=== PATIENT | female | born 1955 | race Caucasian/White ===

== ENCOUNTER 2017-10-04 13:39 | Outpatient (CLI) | payer OTHER ==
--- NOTE | 2017-10-04 16:28 | Mammography Report ---
DATE OF SERVICE: 10/04/2017 DIGITAL DIAGNOSTIC BILATERAL MAMMOGRAM: 10/04/2017 CLINICAL INDICATION: Palpable abnormality 11 o'clock right breast. COMPARISON: 09/19/2013. TECHNIQUE: Bilateral CC, MLO views, right true lateral and laterally exaggerated craniocaudal views. The patient reports that the palpable abnormality has resolved. No marker was placed. FINDINGS: The breasts demonstrate scattered fibroglandular densities bilaterally. Postbiopsy changes in the left breast are stable. Coarse and punctate, typically benign calcifications are present. Intramammary lymph nodes are stable. No suspicious masses, clustered microcalcifications, or regions of architectural distortion are identified. Specifically, no mammographic abnormality is appreciated at the 11 o'clock position of the right breast. IMPRESSION: BENIGN FINDINGS. RECOMMENDATION: ROUTINE ANNUAL SCREENING UNLESS OTHERWISE CLINICALLY INDICATED. BIRADS CATEGORY 2-BENIGN FINDINGS. STANDARD QUALIFYING STATEMENTS: 1. This examination was reviewed with the aid of Computer-Aided Detection (CAD). 2. A negative or benign imaging report should not delay biopsy if clinically suspicious findings are present. Consider surgical consultation if warranted. More than 5% of cancers are not identified by imaging. 3. Dense breasts may obscure an underlying neoplasm. TD: 10/04/2017 17:27
== END 2017-10-04 13:40 | disposition home or self-care (01) ==
LOC: DI 13:39
PROVIDERS: ATTEND Family Medicine
DX: N63.11 Unspecified lump in the right breast, upper outer quadrant (principal)
CPT/HCPCS: 77066

== ENCOUNTER 2019-09-17 09:09 | Outpatient (CLI) | payer MEDICARE, OTHER ==
--- NOTE | 2019-09-18 13:18 | Mammography Report ---
Reason: ROUTINE MAMMO Procedure Date: 09/17/2019 Accession Number: [id number] / [id number] Procedure: SHONDA - Screening Mammo w/Boris CPT Code: Final Report FULL RESULT: EXAM: Screening Mammo w/Boris DATE: 09/17/2019 9:50 AM CLINICAL HISTORY: The patient is an asymptomatic 64-year-old female. Second degree family history of breast cancer. Prior benign biopsies. TECHNIQUE: (B) - Bilateral CC and MLO views were obtained. COMPARISON: 10/04/2017 and 09/19/2013 PARENCHYMAL PATTERN: (A) - The breasts demonstrate scattered fibroglandular densities bilaterally. FINDINGS: RIGHT BREAST: There is a new circumscribed mass in the posterior 1:00 position; reference tomographic slices 47 (MLO) and 29 (CC). Recommend targeted ultrasound. The remainder the parenchymal pattern is stable. LEFT BREAST: The pattern of asymmetry is stable. Postbiopsy changes noted.. There are no suspicious masses, calcifications, or areas of distortion. IMPRESSION: RIGHT BREAST: Incomplete examination. LEFT BREAST: Benign examination. RECOMMENDATION: (ADDUS) - Targeted ultrasound recommended - right breast. BI-RADS CATEGORY: (0) - Incomplete Examination - need additional evaluation. STANDARD QUALIFYING STATEMENTS: A negative or benign imaging report should not preclude biopsy if clinically suspicious findings are present. Dense breasts may obscure an underlying neoplasm. This examination was reviewed with the aid of 3D breast imaging (tomosynthesis).
== END 2019-09-17 09:10 | disposition home or self-care (01) ==
LOC: DI 09:09
PROVIDERS: ATTEND Family Medicine
DX: Z12.31 Encounter for screening mammogram for malignant neoplasm of breast (principal); R92.8 Other abnormal and inconclusive findings on diagnostic imaging of breast; Z80.3 Family history of malignant neoplasm of breast
CPT/HCPCS: 77063; 77067

== ENCOUNTER 2019-09-30 08:48 | Outpatient (CLI) | payer OTHER ==
--- NOTE | 2019-09-30 15:33 | Ultrasound Report ---
Reason: ABN MAMMO - SPEC VIEWS RT Procedure Date: 09/30/2019 Accession Number: [id number] / [id number] Procedure: US - Breast Unilateral Limited CPT Code: Final Report FULL RESULT: EXAM: Breast Unilateral Limited DATE: 09/30/2019 10:19 AM CLINICAL HISTORY: Follow-up abnormal mammogram COMPARISON: Mammogram 09/17/2019 TECHNIQUE: Targeted ultrasound was performed of the right breast in the area of clinical concern at 1:00 o'clock and 8 cm distance from the nipple. Color Doppler was employed as appropriate. FINDINGS: Corresponding to the mammographic abnormality is a 5 x 3 x 4 mm avascular well-circumscribed probable cyst 1:00 position right breast 8 cm from the nipple. No suspicious features or solid mass is seen. IMPRESSION: Probably benign RECOMMENDATION: Follow-up limited right breast ultrasound in 6 months. BIRADS CATEGORY 3 probably benign RADIA
== END 2019-09-30 08:49 | disposition home or self-care (01) ==
LOC: DI 08:48
PROVIDERS: ATTEND Family Medicine
DX: R92.8 Other abnormal and inconclusive findings on diagnostic imaging of breast (principal)
CPT/HCPCS: 76642

== ENCOUNTER 2020-08-19 09:00 | Day surgery (SDC) | payer MEDICARE, OTHER ==
[2020-08-19] MEDS ORDERED: fentaNYL 250 MCG/5 ML VIAL IVP ONE (09:01)
[2020-08-19] MEDS ORDERED: MIDAZOLAM 2 MG/2 ML VIAL IVP ONE (09:01)
[2020-08-19] MEDS ORDERED: ONDANSETRON 4 MG/2 ML VIAL IVP ONE (09:01)
[2020-08-19] MEDS ORDERED: LACTATED RINGERS 1,000 ML IV ONE ×2 (09:09→12:54)
[2020-08-19 13:06] VITALS: BP 121/42
== END 2020-08-19 09:01 | disposition home or self-care (01) ==
LOC: SDS 09:00
PROVIDERS: ATTEND Surgery
PROC: 0DBN8ZZ Excision of Sigmoid Colon, Via Natural or Artificial Opening Endoscopic (ICD-10-PCS; principal; 2020-08-19 10:15)
DX: R19.4 Change in bowel habit (principal); R10.9 Unspecified abdominal pain; D12.5 Benign neoplasm of sigmoid colon; K64.8 Other hemorrhoids; Z90.49 Acquired absence of other specified parts of digestive tract
CPT/HCPCS: 45385; J3010; J7120

== ENCOUNTER 2020-08-24 12:53 | Outpatient (CLI) | payer MEDICARE, OTHER | END 2020-08-24 12:54 | disposition home or self-care (01) | LOC: LAB 12:53 | PROVIDERS: ATTEND Surgery | DX: Z01.812 Encounter for preprocedural laboratory examination (principal); K63.5 Polyp of colon; Z20.828 Contact with and (suspected) exposure to other viral communicable diseases ==

== ENCOUNTER 2020-08-28 06:23 | Inpatient (IN) | payer MEDICARE, OTHER ==
[2020-08-28] MEDS ORDERED: LACTATED RINGERS 1,000 ML IV ONE ×2 (06:28→10:10)
[2020-08-28] MEDS ORDERED: ceFAZolin 2 GM/50 ML 2 GM/50 ML BAG IV ONE (06:30)
[2020-08-28] MEDS ORDERED: ACETAMINOPHEN 1,000 MG/100 ML 100 ML IV ONE (06:32)
[2020-08-28] MEDS ORDERED: GABAPENTIN 400 MG CAPSULE ONE (06:33)
[2020-08-28] MEDS ORDERED: BUPIVACAINE 0.5%-EPI 1:200000 PF 30 ML VIAL ONE (07:04)
[2020-08-28] MEDS ORDERED: LIDOCAINE-MPF 2% 5 ML VIAL ONE (07:05)
[2020-08-28] MEDS ORDERED: MIDAZOLAM 2 MG/2 ML VIAL ONE (07:05)
[2020-08-28] MEDS ORDERED: KETAMINE 500 MG/10 ML VIAL ONE (07:05)
[2020-08-28] MEDS ORDERED: PROMETHAZINE INJ 6.25 MG in SODIUM CHLORIDE 0.9% 50 ML IV PRN (07:05)
[2020-08-28] MEDS ORDERED: KETOROLAC 30 MG/ML VIAL ONE (07:06)
[2020-08-28] MEDS ORDERED: PROPOFOL 200 MG/20 ML VIAL IVP ONE (07:06)
[2020-08-28] MEDS ORDERED: MAGNESIUM SULFATE 1 GM/2 ML VIAL ONE ×2 (07:06→07:32)
[2020-08-28] MEDS ORDERED: DEXAMETHASONE 10 MG/ML VIAL ONE (07:06)
[2020-08-28] MEDS ORDERED: ONDANSETRON 4 MG/2 ML VIAL ONE (07:06)
[2020-08-28] MEDS ORDERED: ROCURONIUM 50 MG/5 ML VIAL ONE (07:07)
[2020-08-28] MEDS ORDERED: SCOPOLAMINE PATCH TOP ONE ×2 (07:10)
[2020-08-28] MEDS ORDERED: PROMETHAZINE 25 MG/1 ML VIAL ONE (07:10)
[2020-08-28] MEDS: CELECOXIB 100 MG CAPSULE PO ONE ×2 (07:22→07:23)
--- NOTE | 2020-08-28 07:27 | ANESTHESIA ---
Pre-Anesthesia VS, & Labs - Diagnosis large sigmoid mass - Procedure sigmoid colectomy Vital Signs: Temp Pulse Resp BP Pulse Ox 36.7 C 134 H 16 180/125 H 99 08/28/20 06:32 08/28/20 06:32 08/28/20 06:32 08/28/20 06:32 08/28/20 06:32 Height: 5 ft 9 in Weight (kg): 69.6 kg Body Mass Index: 22.6 BMI Classification: Healthy weight - NPO >8 hours - Is Patient ?: No - Lab Results Lab results reviewed: Yes Home Medications and Allergies Home Medications: Ambulatory Orders Calcium Carbonate [Elemental Calcium] 600 mg PO DAILY 08/24/20 Glucos Sul 2Kcl/MSM/Chond/C/Mn [Glucosamine Chondroitin Cap] 1 each PO DAILY 08/24/20 Multivitamin [Daily Multiple Vitamin] 1 each PO DAILY 08/24/20 Active Medications Promethazine HCl 6.25 mg/ (Sodium Chloride) 50.25 mls @ 100 mls/hr IV Q6H PRN PRN Reason: Nausea / Vomiting Cefotetan Disodium 2 gm/ (Sodium Chloride) 100 mls @ 200 mls/hr IV ONCE ONE Stop: 08/28/20 08:29 Albuterol Sulf [Ventolin Hfa Inhaler] 1 puffs INH Q4HR PRN 08/18/20 Fluticasone/Salmeterol [Advair 250-50 Diskus] 1 each IH DAILY 08/18/20 Montelukast [Singulair] 1 tab PO DAILY 08/18/20 Ondansetron Odt [Zofran Odt] 4 mg PO DAILY PRN 08/19/20 Calcium Carbonate [Elemental Calcium] 600 mg PO DAILY 08/24/20 Glucos Sul 2Kcl/MSM/Chond/C/Mn [Glucosamine Chondroitin Cap] 1 each PO DAILY 08/24/20 Multivitamin [Daily Multiple Vitamin] 1 each PO DAILY 08/24/20 Allergies/Adverse Reactions: Allergies Allergy/AdvReac Type Severity Reaction Status Date / Time No Known Drug Allergies Allergy Verified 08/19/20 09:26 Anes History & Medical History - Anesthetic History Anesthesia Complications: reports: No previous complications Family history of Anesthesia Complications: Denies Family history of Malignant Hyperthermia: Denies - Medical History Cardiovascular: reports: None Pulmonary: reports: Asthma Gastrointestinal: reports: Hemorrhoids, Other Urinary: reports: Chronic bladder infection Musculoskeletal: reports: None Endocrine/Autoimmune: reports: None Skin: reports: Other - Surgical History General: Appendectomy, Colonoscopy, Other Gynecologic: section, Dilation and currettage, Other Exam General: Alert, Oriented x3, Cooperative, No acute distress Dental: WNL Mouth Openin Fingerbreadth Neck Mobility: Normal Mallampati classification: I Respiratory: Lungs clear, Normal breath sounds, No respiratory distress, No accessory muscle use Cardiovascular: Regular rate, Normal S1, Normal S2, No murmurs Plan Anesthesia Type: General, Epidural, Transverse Abdominis Plane (TAP) Block Regional Block: Per Surgeon's request for Post Op pain control Consent for Procedure(s) Verified and Reviewed: Yes Code Status: Attempt Resuscitation ASA classification: 2-Mild systemic disease Is this case an emergency?: No
[2020-08-28] MEDS ORDERED: ePHEDrine 50 MG/ML VIAL IVP PRN (07:29)
[2020-08-28] MEDS ORDERED: NALOXONE 0.4 MG/ML VIAL IVP PRN (07:29)
[2020-08-28] MEDS ORDERED: ATROPINE ABBOJECT 1 MG/10 ML SYRINGE IVP PRN (07:29)
[2020-08-28] MEDS ORDERED: MORPHINE 2 MG/ML CARPUJECT IVP PRN (07:29)
[2020-08-28] MEDS ORDERED: METOCLOPRAMIDE 10 MG/2 ML VIAL IVP PRN ×2 (07:29→18:59)
[2020-08-28] MEDS ORDERED: HYDROmorphone 0.5 MG/0.5 ML SYRINGE IVP PRN ×2 (07:29→18:59)
[2020-08-28] MEDS ORDERED: ONDANSETRON 4 MG/2 ML VIAL IVP PRN ×2 (07:29→18:59)
[2020-08-28] MEDS ORDERED: fentaNYL 100 MCG/2 ML VIAL IVP PRN (07:29)
[2020-08-28] MEDS ORDERED: BUPIVACAINE 0.25% PF 10 ML VIAL ONE ×2 (07:40→09:54)
[2020-08-28] MEDS ORDERED: CEFOTETAN DISODIUM 2 GM in SODIUM CHLORIDE 0.9% MINIBAG 100 ML IV ONE (08:00)
[2020-08-28] MEDS ORDERED: LACTATED RINGERS 1,000 ML IV SCH ×3 (08:00→19:00)
[2020-08-28] MEDS ORDERED: BUPIVACAINE 0.5%-EPI 1:200000 PF 30 ML VIAL SUBQ ONE (08:35)
[2020-08-28] MEDS ORDERED: ROPIVACAINE 0.5% PF 20 ML AMPULE ONE (08:57)
[2020-08-28] MEDS ORDERED: ePHEDrine 50 MG/ML VIAL IVP ONE (09:15)
[2020-08-28] MEDS ORDERED: SODIUM CHLORIDE 0.9% 20 ML ONE (09:37)
[2020-08-28] MEDS ORDERED: BUPIVACAINE 0.25% PF 30 ML VIAL SUBQ ONE (09:45)
[2020-08-28] MEDS ORDERED: NEOSTIGMINE 1 MG/1 ML 10 ML MDV ONE (09:49)
[2020-08-28] MEDS ORDERED: GLYCOPYRROLATE 1 MG/5 ML VIAL ONE (09:49)
--- NOTE | 2020-08-28 10:04 | OPERATIVE REPORT ---
Operative Report - General Admit Date: 08/28/20 Procedure Date: 08/28/20 Planned Procedure: Sigmoidectomy, possible left colectomy, possible colostomy, possible ileostomy Pre-Op Diagnosis: Enormous polyp not amenable to endoscopic removal Procedure Performed: Sigmoidectomy with colocolostomy (anastamosis) (CPT 83091) Post Op Diagnosis: Two large polyps in sigmoid colon not amenable to endoscopic removal - Procedure Note Primary Surgeon: Robin Cardoso MD Secondary Surgeon: Karen Nelson MD Anesthesia Provider: Markel Navas CRNA Anesthesia Technique: General ET tube, Regional block (TAP bloack) IV Fluids (mL): 1,200 Estimated Blood Loss (mL): 20 Urine Output (mL): 275 Drain/Tube Type: Other (None.) Findings: As above. The rest of the colon was visually and palpably normal. Complications: None. - Other Other Information/Narrative: The dictation service has been disabled for this EHR so look for follow up detailed operative report rather than operative note.
--- NOTE | 2020-08-28 10:50 | ANESTHESIA POST OP EVALUATION ---
Anesthesia Post Eval - Post Anesthesia Eval Vitals: Last Vital Signs Temp 37.4 C 08/28/20 10:45 Pulse 88 08/28/20 10:45 Resp 18 08/28/20 10:45 BP 125/65 08/28/20 10:45 Pulse Ox 97 08/28/20 10:45 CV Function Including HR & BP: positive: Stable Pain Control: positive: Satisfactory Nausea & Vomiting: positive: Negative Mental Status: positive: Baseline Respiratory Status: Airway Patent Hydration Status: Satisfactory Anesthesia Complications: positive: None (Awake and oriented)
[2020-08-28] MEDS: ENOXAPARIN 40 MG/0.4 ML SYRINGE SUBQ SCH (11:43)
[2020-08-28] MEDS ORDERED: HYDROmorphone 1 MG/ML CARPUJECT IVP PRN ×2 (12:33→12:37)
--- NOTE | 2020-08-28 16:17 | PHARMACY PROGRESS NOTE ---
- Best Possible Medication History Admit Date and Time: 08/28/20 0623 Processed by: Pharmacy Medication History completed: Yes Patient Interview: Completed Secondary Source(s): Pharmacy records, Insurance records As the person ultimately responsible for medication therapy, providers are able to order a medication from an existing home medication list in [facility] via the "Reconcile Routine" prior to Confirmation of that medication by application support administrator. Such practice is discouraged except when the physician, in their clinical judgment, deems that a medical need exists for a medication without regard to previous use.
[2020-08-28] MEDS: LACTATED RINGERS 1,000 ML IV SCH (17:36)
[2020-08-28] MEDS: FORMOTEROL FUMARATE NEB 20 MCG/2 ML INH SCH (18:02)
[2020-08-28] MEDS: BUDESONIDE 0.5 MG/2 ML NEB INH SCH (18:02)
[2020-08-28] MEDS: oxyCODONE 5 MG TABLET PO PRN (22:41)
[2020-08-28] MEDS: IBUPROFEN 600 MG TABLET PO SCH ×3 (22:48→23:35)
[2020-08-29] MEDS: oxyCODONE 5 MG TABLET PO PRN ×4 (04:57→23:41)
[2020-08-29 05:43] LABS: BASOPHILS % (AUTO) 0.2 %; HGB - HEMOGLOBIN 11.1 g/dL (12.0-16.0); LYMPHOCYTES # (AUTO) 0.9 10^3/uL (1.5-3.5); LYMPHOCYTES % (AUTO) 5.1 %; MEAN CORPUSCULAR HEMOGLOBIN 30.2 pg (27.0-31.0); MEAN CORPUSCULAR HGB CONC 31.7 g/dL (32.0-36.0); MEAN CORPUSCULAR VOLUME 95.1 fL (81.0-99.0); MONOCYTES # (AUTO) 1.1 10^3/uL (0.0-1.0); MONOCYTES % (AUTO) 6.1 %; NEUTROPHILS # (AUTO) 16.1 10^3/uL (1.5-6.6); NEUTROPHILS % (AUTO) 87.8 %; PLT - PLATELET COUNT 387 10^3/uL (130-450); RED BLOOD COUNT 3.68 10^6/uL (4.20-5.40); RED CELL DISTRIBUTION WIDTH 13.1 % (12.0-15.0); WHITE BLOOD COUNT 18.3 x10^3/uL (4.8-10.8)
[2020-08-29 05:54] LABS: ALBUMIN 3.2 g/dL (3.2-5.5); ALBUMIN/GLOBULIN RATIO 1.1 (1.0-2.2); BILIRUBIN,TOTAL 0.5 mg/dL (0.2-1.0); CALCIUM 8.6 mg/dL (8.5-10.3); CREATININE 0.6 mg/dL (0.4-1.0); TOTAL PROTEIN 6.1 g/dL (6.7-8.2)
[2020-08-29] MEDS: ALBUTEROL NEB 2.5 MG/3 ML INH PRN ×2 (07:54→19:40)
[2020-08-29] MEDS: BUDESONIDE 0.5 MG/2 ML NEB INH SCH ×2 (07:54→19:40)
[2020-08-29] MEDS: FORMOTEROL FUMARATE NEB 20 MCG/2 ML INH SCH ×2 (07:54→19:40)
[2020-08-29] MEDS: ENOXAPARIN 40 MG/0.4 ML SYRINGE SUBQ SCH (09:16)
[2020-08-29] MEDS: IBUPROFEN 600 MG TABLET PO SCH (11:46)
--- NOTE | 2020-08-29 12:14 | PROVIDER PROGRESS NOTE ---
Subjective - General Admit Date: 08/28/20 Procedure Date: 08/28/20 Post Op Days: 1 - Review of Systems Wound/Incisions: positive: Healing well, No drainage, Other (Slight ecchymosis.) General: positive: No symptoms, Other (Feels markedly better than she felt after her previous surgery 8 years ago.) HEENT: positive: No symptoms Pulmonary: positive: No symptoms, Wheezing (Slight - did not get her Singulair last night but she decided not to let me know.) Cardiovascular: positive: No symptoms Gastrointestinal: positive: No symptoms Genitourinary: positive: No symptoms Musculoskeletal: positive: No symptoms Skin: positive: No symptoms Psychiatric: positive: No symptoms Objective - Patient Data Reviewed Vital Signs: Yes Vital Signs: Vital Signs x48h Temp Pulse Pulse Resp BP Pulse Ox 08/29/20 07:55 89 20 08/29/20 07:30 36.9 C 85 16 115/57 L 97 08/29/20 05:00 36.7 C 92 16 106/54 L 96 Weight: Weight 08/27/20 08/28/20 08/29/20 23:59 23:59 23:59 Weight (kg) 69.6 kg Intake & Output: Intake and Output Totals x24h 08/27/20 08/28/20 08/29/20 23:59 23:59 23:59 Intake Total 1320 600 Output Total 1520 625 Balance -200 -25 - Lab Results Lab Results: 08/29/20 05:24 08/29/20 05:24 Other Lab Results: Lab Results x24hrs 08/29/20 08/29/20 08/29/20 Range/Units 11:08 07:25 05:24 WBC (4.8-10.8) x10^3/uL RBC (4.20-5.40) 10^6/uL Hgb (12.0-16.0) g/dL Hct (37.0-47.0) % MCV (81.0-99.0) fL MCH (27.0-31.0) pg MCHC (32.0-36.0) g/dL RDW (12.0-15.0) % Plt Count (130-450) 10^3/uL MPV (7.9-10.8) fL Neut # (Auto) (1.5-6.6) 10^3/uL Lymph # (Auto) (1.5-3.5) 10^3/uL Holmes # (Auto) (0.0-1.0) 10^3/uL Eos # (Auto) (0.0-0.7) 10^3/uL Baso # (Auto) (0.0-0.1) 10^3/uL Absolute Nucleated RBC x10^3/uL Nucleated RBC % /100WBC Sodium 139 (135-145) mmol/L Potassium 3.2 L (3.5-5.0) mmol/L Chloride 105 (101-111) mmol/L Carbon Dioxide 24 (21-32) mmol/L Anion Gap 10.0 (6-13) BUN 8 (6-20) mg/dL Creatinine 0.6 (0.4-1.0) mg/dL Estimated GFR (MDRD) 100 (>89) Glucose 135 H (70-100) mg/dL POC Whole Bld Glucose 109 H 120 H (70 - 100) mg/dL Calcium 8.6 (8.5-10.3) mg/dL Total Bilirubin 0.5 (0.2-1.0) mg/dL AST 17 (10-42) IU/L ALT 18 (10-60) IU/L Alkaline Phosphatase 57 (42-121) IU/L Total Protein 6.1 L (6.7-8.2) g/dL Albumin 3.2 (3.2-5.5) g/dL Globulin 2.9 (2.1-4.2) g/dL Albumin/Globulin Ratio 1.1 (1.0-2.2) 08/29/20 08/28/20 08/28/20 Range/Units 05:24 20:52 16:46 WBC 18.3 H (4.8-10.8) x10^3/uL RBC 3.68 L (4.20-5.40) 10^6/uL Hgb 11.1 L (12.0-16.0) g/dL Hct 35.0 L (37.0-47.0) % MCV 95.1 (81.0-99.0) fL MCH 30.2 (27.0-31.0) pg MCHC 31.7 L (32.0-36.0) g/dL RDW 13.1 (12.0-15.0) % Plt Count 387 (130-450) 10^3/uL MPV 9.0 (7.9-10.8) fL Neut # (Auto) 16.1 H (1.5-6.6) 10^3/uL Lymph # (Auto) 0.9 L (1.5-3.5) 10^3/uL Holmes # (Auto) 1.1 H (0.0-1.0) 10^3/uL Eos # (Auto) 0.0 (0.0-0.7) 10^3/uL Baso # (Auto) 0.0 (0.0-0.1) 10^3/uL Absolute Nucleated RBC 0.00 x10^3/uL Nucleated RBC % 0.0 /100WBC Sodium (135-145) mmol/L Potassium (3.5-5.0) mmol/L Chloride (101-111) mmol/L Carbon Dioxide (21-32) mmol/L Anion Gap (6-13) BUN (6-20) mg/dL Creatinine (0.4-1.0) mg/dL Estimated GFR (MDRD) (>89) Glucose (70-100) mg/dL POC Whole Bld Glucose 139 H 153 H (70 - 100) mg/dL Calcium (8.5-10.3) mg/dL Total Bilirubin (0.2-1.0) mg/dL AST (10-42) IU/L ALT (10-60) IU/L Alkaline Phosphatase (42-121) IU/L Total Protein (6.7-8.2) g/dL Albumin (3.2-5.5) g/dL Globulin (2.1-4.2) g/dL Albumin/Globulin Ratio (1.0-2.2) - Current Medications Current Medications: Current Medications Generic Name Dose Route Start Last Admin Trade Name Freq PRN Reason Stop Dose Admin Albuterol 2.5 mg 08/28/20 12:27 08/29/20 07:54 Albuterol Neb 2.5 Mg/3 Ml INH 2.5 mg RTQ4H PRN Administration Wheezing Budesonide 0.5 mg 08/28/20 19:00 08/29/20 07:54 Budesonide 0.5 Mg/2 Ml Neb INH 0.5 mg RTBID DORA Administration Enoxaparin Sodium 40 mg 08/28/20 11:00 08/29/20 09:16 Enoxaparin 40 Mg/0.4 Ml Syringe SUBQ 40 mg DAILY DORA Administration Formoterol Fumarate 20 mcg 08/28/20 19:00 08/29/20 07:54 Formoterol Fumarate Neb 20 Mcg/2 Ml INH 20 mcg RTBID DORA Administration Hydromorphone HCl 0.1 mg 08/28/20 12:37 08/28/20 12:51 Hydromorphone 1 Mg/Ml Carpuject IVP 0.1 mg Q1H PRN Administration PAIN Lactated Ringer's 1,000 mls @ 50 mls/hr 08/28/20 14:00 08/28/20 17:36 Lr IV 50 mls/hr .Q20H DORA Administration Ibuprofen 600 mg 08/28/20 20:00 08/29/20 11:46 Ibuprofen 600 Mg Tablet PO Not Given Q6HR DORA Oxycodone HCl 5 mg 08/28/20 18:59 08/29/20 04:57 Oxycodone 5 Mg Tablet PO 5 mg Q4HR PRN Administration PAIN - Physical Exam Wound/Incisions: positive: Healing well, Other (Slight ecchymosis.) General Appearance: positive: No acute distress, Alert (Sitting up in chair - has not been in bed all day long.) Eyes Bilateral: positive: Normal inspection, EOMI, No lid inflammation, Conjunctivae nml ENT: positive: No signs of dehydration Neck: positive: Nml inspection, Trachea midline Respiratory: positive: Chest non-tender, No respiratory distress, Breath sounds nml Cardiovascular: positive: Regular rate & rhythm, No murmur, No gallop Abdomen: positive: Non-tender, No organomegaly, No distention, Tenderness (Incisional.), Abnml bowel sounds (Slightly decreased.) Skin: positive: Color nml, Warm, Dry Extremities: positive: Non-tender, Nml appearance Neurologic/Psychiatric: positive: Oriented x3, Motor nml, Mood/affect nml ABX Reporting Has patient been on IV antibiotics over the past 48 hours?: Yes Impression/Plan - Problem List Problem List: D1 s/p sigmoidectomy with colocolostomy (anastamosis) 1) FEN Will switch to general diet tonight - patient has teeth and knows how to use them so soft diet does not make any sense. Stop sugar checks as patient is not diabetic. Will supplement low potassium. 2) Activity Patient is walking all over the place - exceeding my expectations. 3) ID WBC of 18 although not anticipated and not accompanied by any other sign of infection is a bit higher than I expected - will check again tomorrow. 4) RAD Will ensure that Singulair is given. 5) Pathology Pending am not expecting malignancy. Patient instructed to let us know if there is any way to make her more comfortable or with any questions/concerns.
[2020-08-29] MEDS ORDERED: ACETAMINOPHEN 500 MG TABLET PO PRN (12:24)
[2020-08-29] MEDS ORDERED: POTASSIUM CHLORIDE 20 MEQ TABLET PO ONE (12:24)
[2020-08-29] MEDS: LACTATED RINGERS 1,000 ML IV SCH (12:49)
[2020-08-29] MEDS ORDERED: MONTELUKAST 10 MG TABLET PO SCH ×2 (13:00→21:00)
[2020-08-30] MEDS: oxyCODONE 5 MG TABLET PO PRN ×2 (05:08→12:18)
[2020-08-30 06:06] LABS: BASOPHILS % (AUTO) 0.3 %; EOSINOPHILS # (AUTO) 0.1 10^3/uL (0.0-0.7); EOSINOPHILS % (AUTO) 0.9 %; HGB - HEMOGLOBIN 10.4 g/dL (12.0-16.0); LYMPHOCYTES # (AUTO) 1.6 10^3/uL (1.5-3.5); LYMPHOCYTES % (AUTO) 13.8 %; MEAN CORPUSCULAR HEMOGLOBIN 31.1 pg (27.0-31.0); MEAN CORPUSCULAR VOLUME 97.3 fL (81.0-99.0); MEAN PLATELET VOLUME 8.8 fL (7.9-10.8); MONOCYTES # (AUTO) 0.8 10^3/uL (0.0-1.0); MONOCYTES % (AUTO) 6.6 %; NEUTROPHILS # (AUTO) 9.3 10^3/uL (1.5-6.6); NEUTROPHILS % (AUTO) 77.8 %; PLT - PLATELET COUNT 369 10^3/uL (130-450); RED BLOOD COUNT 3.34 10^6/uL (4.20-5.40); RED CELL DISTRIBUTION WIDTH 13.4 % (12.0-15.0); WHITE BLOOD COUNT 11.9 x10^3/uL (4.8-10.8)
[2020-08-30 06:23] LABS: ALBUMIN 2.9 g/dL (3.2-5.5); BILIRUBIN,TOTAL 0.3 mg/dL (0.2-1.0); CALCIUM 8.3 mg/dL (8.5-10.3); CREATININE 0.5 mg/dL (0.4-1.0); TOTAL PROTEIN 5.7 g/dL (6.7-8.2)
[2020-08-30] MEDS: BUDESONIDE 0.5 MG/2 ML NEB INH SCH (07:30)
[2020-08-30] MEDS: ALBUTEROL NEB 2.5 MG/3 ML INH PRN (07:30)
[2020-08-30] MEDS: FORMOTEROL FUMARATE NEB 20 MCG/2 ML INH SCH (07:30)
[2020-08-30] MEDS: LACTATED RINGERS 1,000 ML IV SCH (08:48)
[2020-08-30] MEDS ORDERED: polyethylene glycoL 3350 17 GM PACKET PO SCH (09:00)
[2020-08-30] MEDS: ENOXAPARIN 40 MG/0.4 ML SYRINGE SUBQ SCH (09:28)
--- NOTE | 2020-08-30 14:28 | PROVIDER PROGRESS NOTE ---
Subjective - General Admit Date: 08/28/20 Procedure Date: 08/28/20 Post Op Days: 2 - Review of Systems Wound/Incisions: positive: Healing well, Other (Slight ecchymosis.) General: positive: No symptoms, Other (Continues to feel markedly better than she felt after her previous surgery 8 years ago.) HEENT: positive: No symptoms Pulmonary: positive: No symptoms Cardiovascular: positive: No symptoms, Other (Passed some gas last night.) Gastrointestinal: positive: No symptoms Genitourinary: positive: No symptoms Musculoskeletal: positive: No symptoms Skin: positive: No symptoms Psychiatric: positive: No symptoms Objective - Patient Data Reviewed Vital Signs: Yes Vital Signs: Vital Signs x48h Temp Pulse Pulse Resp BP Pulse Ox 08/30/20 13:00 36.7 C 97 16 137/71 H 98 08/30/20 09:36 88 127/57 L 08/30/20 08:34 36.8 C 122 H 14 149/60 H 98 08/30/20 07:30 83 16 Weight: Weight 08/28/20 08/29/20 08/30/20 23:59 23:59 23:59 Weight (kg) 69.6 kg Intake & Output: Intake and Output Totals x24h 08/28/20 08/29/20 08/30/20 23:59 23:59 23:59 Intake Total 1320 2120.833 2750.000 Output Total 1520 2125 1475 Balance -200 -4.167 1275.000 - Lab Results Lab Results: 08/30/20 05:55 08/30/20 05:55 Other Lab Results: Lab Results x24hrs 08/30/20 08/30/20 Range/Units 05:55 05:55 WBC 11.9 H (4.8-10.8) x10^3/uL RBC 3.34 L (4.20-5.40) 10^6/uL Hgb 10.4 L (12.0-16.0) g/dL Hct 32.5 L (37.0-47.0) % MCV 97.3 (81.0-99.0) fL MCH 31.1 H (27.0-31.0) pg MCHC 32.0 (32.0-36.0) g/dL RDW 13.4 (12.0-15.0) % Plt Count 369 (130-450) 10^3/uL MPV 8.8 (7.9-10.8) fL Neut # (Auto) 9.3 H (1.5-6.6) 10^3/uL Lymph # (Auto) 1.6 (1.5-3.5) 10^3/uL Lawrence # (Auto) 0.8 (0.0-1.0) 10^3/uL Eos # (Auto) 0.1 (0.0-0.7) 10^3/uL Baso # (Auto) 0.0 (0.0-0.1) 10^3/uL Absolute Nucleated RBC 0.00 x10^3/uL Nucleated RBC % 0.0 /100WBC Sodium 140 (135-145) mmol/L Potassium 3.3 L (3.5-5.0) mmol/L Chloride 107 (101-111) mmol/L Carbon Dioxide 24 (21-32) mmol/L Anion Gap 9.0 (6-13) BUN 9 (6-20) mg/dL Creatinine 0.5 (0.4-1.0) mg/dL Estimated GFR (MDRD) 123 (>89) Glucose 118 H (70-100) mg/dL Calcium 8.3 L (8.5-10.3) mg/dL Total Bilirubin 0.3 (0.2-1.0) mg/dL AST 16 (10-42) IU/L ALT 15 (10-60) IU/L Alkaline Phosphatase 52 (42-121) IU/L Total Protein 5.7 L (6.7-8.2) g/dL Albumin 2.9 L (3.2-5.5) g/dL Globulin 2.8 (2.1-4.2) g/dL Albumin/Globulin Ratio 1.0 (1.0-2.2) - Current Medications Current Medications: Current Medications Generic Name Dose Route Start Last Admin Trade Name Freq PRN Reason Stop Dose Admin Acetaminophen 500 mg 08/29/20 12:24 08/30/20 11:44 Acetaminophen 500 Mg Tablet PO 500 mg Q4HR PRN Administration Pain or Fever > 38C (100.4F) Albuterol 2.5 mg 08/28/20 12:27 08/30/20 07:30 Albuterol Neb 2.5 Mg/3 Ml INH 2.5 mg RTQ4H PRN Administration Wheezing Budesonide 0.5 mg 08/28/20 19:00 08/30/20 07:30 Budesonide 0.5 Mg/2 Ml Neb INH 0.5 mg RTBID DORA Administration Enoxaparin Sodium 40 mg 08/28/20 11:00 08/30/20 09:28 Enoxaparin 40 Mg/0.4 Ml Syringe SUBQ 40 mg DAILY DORA Administration Formoterol Fumarate 20 mcg 08/28/20 19:00 08/30/20 07:30 Formoterol Fumarate Neb 20 Mcg/2 Ml INH 20 mcg RTBID DORA Administration Hydromorphone HCl 0.1 mg 08/28/20 12:37 08/28/20 12:51 Hydromorphone 1 Mg/Ml Carpuject IVP 0.1 mg Q1H PRN Administration PAIN Lactated Ringer's 1,000 mls @ 50 mls/hr 08/28/20 14:00 08/30/20 11:45 Lr IV 50 mls/hr .Q20H DORA Infusion Montelukast Sodium 10 mg 08/29/20 21:00 08/29/20 20:33 Montelukast 10 Mg Tablet PO 10 mg QPM DORA Administration Oxycodone HCl 5 mg 08/28/20 18:59 08/30/20 12:18 Oxycodone 5 Mg Tablet PO 5 mg Q4HR PRN Administration PAIN Polyethylene Glycol 17 gm 08/30/20 09:00 08/30/20 09:28 Polyethylene Glycol 3350 17 Gm Packet PO 17 gm DAILY DORA Administration - Physical Exam Wound/Incisions: positive: Healing well, No drainage, Other (Continued mild ecchymosis.) General Appearance: positive: No acute distress, Alert Eyes Bilateral: positive: Normal inspection ENT: positive: No signs of dehydration Neck: positive: No JVD, Trachea midline Respiratory: positive: Chest non-tender, No respiratory distress, Breath sounds nml Cardiovascular: positive: Regular rate & rhythm Abdomen: positive: Non-tender, Abnml bowel sounds (Slightly decreased.) Skin: positive: Color nml Extremities: positive: Non-tender, Nml appearance Neurologic/Psychiatric: positive: Oriented x3, Sensation nml, Mood/affect nml ABX Reporting Has patient been on IV antibiotics over the past 48 hours?: Yes Impression/Plan - Problem List Problem List: D2 s/p sigmoidectomy with colocolostomy (anastamosis) 1) FEN Patient tolerating general diet. Will supplement low potassium with a few bananas at home. 2) Activity Patient is walking all over the place - exceeding my expectations. 3) ID WBC decreased to 11 today and this is more consistent with a postoperative inflammatory response. No sign of infection. 4) RAD Singulair given. 5) GI Passed some gas. Not expecting much in the form of stool. 6) Pathology Pending am not expecting malignancy. Patient is walking, has bowel function, tolerating general diet, no sign of infection, has an excellent support system at home so I will discharge her home and see her in the office later this week.
--- NOTE | 2020-08-30 14:52 | Discharge Plan ---
Discharge Plan Problem Reviewed?: Yes Disposition: Home, Self Care Condition: Good Prescriptions: oxyCODONE [Roxicodone] 5 mg PO Q4HR PRN #10 tablet PRN Reason: Pain Diet: Regular Activity Restrictions: No lifting >15 pounds for Shower Restrictions: No Driving Restrictions: Yes Assistance Devices: Other (None.) Weight Bearing: Full Weight Plan of Treatment: Continued improvement. Additional Instructions or Follow Up instructions: No lifting > 15 pounds for 6 weeks. Okay to shower, hot tub swim, general diet, have sex. No driving until seen in office. No Smoking: If you smoke, Please STOP! Call for help. Follow-up with: Matt Jang MD [Primary Care Provider] - Robin Cardoso MD [Provider Admit Priv/Credential] -
--- NOTE | 2020-08-30 15:02 | DISCHARGE SUMMARY ---
"Discharge Summary Admit Date: 08/28/20 Discharge Date: 08/30/20 Discharging Provider: Robin Cardoso MD Primary Care Provider: Matt Jang MD Code Status: Attempt Resuscitation Condition at Discharge: Good Discharge Disposition: 01 Home, Self Care - DIAGNOSES Admission Diagnoses: Enormous sigmoid polyp that was not amenable to endoscopic resection Discharge Diagnoses with Status of Each Condition: Removed. - CONSULTS | PROCEDURES Consultations: None. Procedures: Sigmoidectomy with anastamosis (ICD-10 03182) - ALLERGIES Allergies/Adverse Reactions: Allergies Allergy/AdvReac Type Severity Reaction Status Date / Time No Known Drug Allergies Allergy Verified 08/19/20 09:26 - MEDICATIONS Home Medications: Ambulatory Orders Medication Instructions Recorded Confirmed Albuterol Sulf [Ventolin Hfa 2 puffs INH Q4HR PRN 08/18/20 08/28/20 Inhaler] Fluticasone/Salmeterol [Advair 1 puffs INH DAILY 08/18/20 08/28/20 250-50 Diskus] Montelukast [Singulair] 10 mg PO DAILY 08/18/20 08/28/20 Ondansetron Odt [Zofran Odt] 4 mg PO Q6H PRN 08/19/20 08/28/20 Calcium Carbonate [Calcium] 600 mg PO DAILY 08/24/20 08/28/20 Glucos Sul 2Kcl/MSM/Chond/C/Mn 1 cap PO DAILY 08/24/20 08/28/20 [Glucosamine Chondroitin Cap] Multivitamin [Daily Multiple 1 tab PO DAILY 08/24/20 08/28/20 Vitamin] Potassium Chloride [Klor-Con 10] 10 meq PO DAILY 08/28/20 08/28/20 Acetaminophen [Tylenol] 500 mg PO Q4HR PRN tablet 08/30/20 oxyCODONE [Roxicodone] 5 mg PO Q4HR PRN #10 tablet 08/30/20 - PHYSICAL EXAM AT DISCHARGE General Appearance: positive: No acute distress Eyes Bilateral: positive: Normal inspection, No lid inflammation, Conjunctivae nml ENT: positive: No signs of dehydration Neck: positive: No JVD, Trachea midline Respiratory: positive: Chest non-tender, Breath sounds nml Cardiovascular: positive: Regular rate & rhythm, No murmur, No gallop Abdomen: positive: No distention, Tenderness (Mild incisional.), Abnml bowel sounds (Slightly decreased.). negative: Guarding, Rebound, Hepatomegaly, Splenomegaly Skin: positive: Color nml, No rash, Warm, Dry Extremities: positive: Non-tender, Nml appearance Neurologic/Psychiatric: positive: Oriented x3, Sensation nml, Mood/affect nml - LABS Result Diagrams: 08/30/20 05:55 08/30/20 05:55 - QUALITY (Female Hip Fx Only) Was patient sent home on osteoporosis medication?: No - FOLLOW UP Follow Up: This week with me - call tomorrow for appointment later this week. - TIME SPENT Time Spent in Discharge (Minutes): 45"
[2020-08-30 15:41] VITALS: BP 147/61
== END 2020-08-30 16:11 | disposition home or self-care (01) | DRG 331 ==
LOC: MS2 06:23
PROVIDERS: ADMIT Surgery; ATTEND Surgery
PROC: 0DTN0ZZ Resection of Sigmoid Colon, Open Approach (ICD-10-PCS; principal; 2020-08-28 07:30)
DX: D12.5 Benign neoplasm of sigmoid colon (principal); J45.909 Unspecified asthma, uncomplicated
CPT/HCPCS: 36415; 80053; 85025; 88309; 94640; A9270; J0131; J1650; J3490; J7120; J7626

== ENCOUNTER 2020-09-29 10:44 | Outpatient (CLI) | payer MEDICARE, OTHER ==
--- NOTE | 2020-09-30 10:08 | Mammography Report ---
BILATERAL DIGITAL DIAGNOSTIC MAMMOGRAM 3D/2D: 09/29/2020 CLINICAL: Patient returns for a 6 month follow up of bilateral breasts. Additional evaluation request ed from prior study. Comparison is made to exams dated: 09/30/2019 ultrasound, 09/17/2019 mammogram, and 10/04/2017 mammogram - . There are scattered fibroglandular elements in both breasts. The oval cyst in the right breast at 1 o'clock middle depth is no longer seen. No other significant masses, calcifications, or other findings are seen in either breast. IMPRESSION: INCOMPLETE: NEEDS ADDITIONAL IMAGING EVALUATION An ultrasound is recommended to confirm the no longer seen oval cyst in the right breast middle depth . This exam was interpreted at Station ID: [id number]. NOTE: For mammograms, a report in lay terms will be sent to the patient. Approximately 15% of breast malignancies will not be visualized mammographically. In the management of a palpable breast mass, a negative mammogram must not discourage biopsy of a clinically suspicious lesion. Electronically Signed By: Jorje mcginnis/delmy:09/29/2020 12:49:13 ACR BI-RADS Category 0: Incomplete 3340F PARENCHYMAL PATTERN: (A) - The breast(s) demonstrate(s) scattered fibroglandular densities. BI-RADS CATEGORY: (0) - 0 Ultrasound [id number] Immediate follow-up LATERALITY: (R)
--- NOTE | 2020-09-30 10:08 | Ultrasound Report ---
LIMITED ULTRASOUND OF RIGHT BREAST: 09/29/2020 CLINICAL: 6 month follow-up of cyst. Comparison is made to exams dated: 09/30/2019 ultrasound, 09/17/2019 mammogram, 10/04/2017 mammogram, an d 09/29/2020 mammogram - [facility]. Ultrasound of the right breast 1 o'clock region was performed. Prior mass in the right breast at 1 o'clock is no longer present. No significant abnormalities were seen sonographically in the right breast. IMPRESSION: NEGATIVE There is no sonographic evidence of malignancy. A 1 year screening mammogram is recommended. This exam was interpreted at Station ID: [id number]. Electronically Signed By: Jorje mcginnis/delmy:09/29/2020 13:12:43 Ultrasound BI-RADS: 1 Negative BI-RADS CATEGORY: (1) - 1 RECOMMENDATION: (ANNUAL) - Recommend routine annual screening mammography. [id number] 1 year screening LATERALITY: (B)
== END 2020-09-29 10:45 | disposition home or self-care (01) ==
LOC: DI 10:44
PROVIDERS: ATTEND Family Medicine
DX: R92.2 Inconclusive mammogram (principal)

== ENCOUNTER 2021-11-17 11:19 | Outpatient (CLI) | payer MEDICARE, OTHER ==
--- NOTE | 2021-11-19 06:40 | Mammography Report ---
BILATERAL DIGITAL SCREENING MAMMOGRAM 3D/2D: 11/17/2021 CLINICAL: Routine screening. Comparison is made to exams dated: 09/29/2020 ultrasound, 09/29/2020 mammogram, 09/30/2019 ultrasound, 09/17/2019 mammogram, and 10/04/2017 mammogram - [facility]. There are scattered fibr oglandular elements in both breasts. There is a possible developing irregular asymmetry in the left breast middle depth central to the nip ple seen on the mediolateral oblique view only. This is more prominent. There is axillary adenopath y associated with the asymmetry. No other significant masses, calcifications, or other findings are seen in either breast. IMPRESSION: INCOMPLETE: NEEDS ADDITIONAL IMAGING EVALUATION The possible developing irregular asymmetry in the left breast is indeterminate. Additional views wi th possible ultrasound are recommended. This exam was interpreted at Station ID: [id number]. NOTE: For mammograms, a report in lay terms will be sent to the patient. Approximately 15% of breast malignancies will not be visualized mammographically. In the management of a palpable breast mass, a negative mammogram must not discourage biopsy of a clinically suspicious lesion. Electronically Signed By: Daisy españa/:11/17/2021 13:07:02 ACR BI-RADS Category 0: Incomplete 3340F PARENCHYMAL PATTERN: (A) - The breast(s) demonstrate(s) scattered fibroglandular densities. BI-RADS CATEGORY: (0) - 0 Mammo and [place] [id number] Immediate follow-up LATERALITY: (B)
== END 2021-11-17 11:20 | disposition home or self-care (01) ==
LOC: DI.N 11:19
PROVIDERS: ATTEND Family Medicine
DX: Z12.31 Encounter for screening mammogram for malignant neoplasm of breast (principal); R92.8 Other abnormal and inconclusive findings on diagnostic imaging of breast

== ENCOUNTER 2024-02-19 10:48 | Outpatient (CLI) | payer MEDICARE, OTHER ==
--- NOTE | 2024-02-19 18:04 | DEXA Report ---
PROCEDURE: Dexa Spine and/or Hip INDICATIONS: MENOPAUSAL TECHNIQUE: Dual energy x-ray absorptiometry (DXA) was performed on a [employer] System. Regions measur ed are the AP Spine, femoral neck, and if needed forearm. COMPARISON: None FINDINGS: Lumbar Spine: Bone Mineral Density: 1.044 g/cm/cm,T score: -1.3. Osteopenia Left Femoral Neck: Bone Mineral Density: 0.746 g/cm/cm, T score: -2.1, osteopenia. Left Hip: Bone Mineral Density: 0.755 g/cm/cm,T score: -2.0, osteopenia. (T score greater or equal to -1.0: NORMAL) (T score from -1.1 to -2.4: OSTEOPENIA) (T score less than or equal to -2.5 to: OSTEOPOROSIS) Impression: By WHO criteria, this patient has low bone density (osteopenia). Patients with diagnosis of osteoporosis or osteopenia should have regular bone mineral density assess ment. For those eligible for Medicare, routine testing is allowed once every 2 years. Testing frequ ency can be increased for patients who have rapidly progressing disease or for those who are receivin g medical therapy to restore bone mass. Reviewed by: Daisy Hammer MD on 02/19/2024 6:03 PM PDT Approved by: Daisy Hammer MD on 02/19/2024 6:03 PM PDT Station ID: [id number]
== END 2024-02-19 10:49 | disposition home or self-care (01) ==
LOC: DI 10:48
PROVIDERS: ATTEND Internal Medicine
DX: M85.89 Other specified disorders of bone density and structure, multiple sites (principal)